=== PATIENT | female | born 1975 | race Caucasian/White ===

== ENCOUNTER → 2023-06-21 01:55 | Outpatient (CLI) | payer OTHER, SELFPAY | PROVIDERS: Referring Provider Family Medicine; Visit Provider Family Medicine | DX: Z23 Encounter for immunization (principal) | CPT/HCPCS: 90471; 90686 ==

== ENCOUNTER → 2024-05-13 07:28 | Outpatient (CLI) | payer OTHER, SELFPAY ==
--- NOTE | 2024-05-13 07:29 | DI.US.S_ITS ---
PROCEDURE: US PELVIC COMPLETE INDICATIONS: irregular bleeding TECHNIQUE: Real-time scanning was performed of the pelvic organs, with image documentation. Additional endovaginal scanning was necessary due to incomplete visualization of the adnexal and endometrial structures by transabdominal scanning. COMPARISON: None. FINDINGS: Uterus: Uterus is anteverted and normal in size at 11.9 x 4.5 x 5.4 cm. The myometrium is homogeneous. The endometrium measures 10.7 mm combined thickness. Ovaries: The right ovary measures 2.5 x 2.8 x 2.4 cm, with a calculated ovarian volume of 9 cc. The left ovary measures 1.9 x 3.9 x 2.6 cm, with a calculated ovarian volume of 10 cc. The ovaries have a normal sonographic appearance. Less than 12 follicles can be seen in each ovary. No adnexal masses are seen. Other: No pathologic free abdominal or pelvic fluid. IMPRESSION: Normal pelvic ultrasound. We strive to produce accurate, complete, and clear reports of imaging services. To assist us in improving patient care, this report was composed using standard report templates and voice recognition software. Therefore, it may contain abnormal punctuation, insertions and/or omissions. Occasional wrong-word or sound-alike substitutions may occur. Though we review the report and make efforts to correct it, we do recommend that the report be read carefully in proper context to recognize any text inaccuracies. Dictated by: Angelo Medina M.D. on 05/13/2024 at 8:51 Approved by: Angelo Medina M.D. on 05/13/2024 at 8:52
== END ==
PROVIDERS: PCP Family Medicine; Referring Provider Obstetrics & Gynecology; Visit Provider Obstetrics & Gynecology
DX: N92.6 Irregular menstruation, unspecified (principal)
CPT/HCPCS: 76856

== ENCOUNTER → 2024-05-31 17:23 | Outpatient (CLI) | payer OTHER, SELFPAY ==
[2024-05-31 18:35] LABS: Follicle Stimulating Hormone 9.04 mIU/mL; Luteinizing Hormone 4.94 mIU/mL
[2024-05-31 18:50] LABS: Estradiol, Total 47.1 pg/mL
== END ==
PROVIDERS: PCP Family Medicine; Referring Provider Obstetrics & Gynecology; Visit Provider Obstetrics & Gynecology
DX: N95.1 Menopausal and female climacteric states (principal); N93.9 Abnormal uterine and vaginal bleeding, unspecified; N92.6 Irregular menstruation, unspecified
CPT/HCPCS: 36415; 82670; 83001; 83002

== ENCOUNTER 2024-06-20 13:11 | Day surgery (SDC) | payer OTHER, SELFPAY ==
[2024-06-18 08:48] VITALS: BMI 34.3
[2024-06-20] VITALS (13 sets, daily range): BP systolic 83–103; BP diastolic 35–70; PULSE 16–98; RESP 12–92; TEMP 36.5–36.9; O2SAT 2–98; BMI 34.3
--- NOTE | 2024-06-20 | PATH_ITS ---
[facility] Accession Number: [id number] No. of containers..03 Tissue . 01 Material submitted: . PART A: endocervix - ENDOCERVICAL CURETTINGS PART B: endometrium - ENDOMETRIAL CURETTINGS PART C: cervix - CERVICAL LESION . 01 Diagnosis: A. ENDOCERVICAL CURETTINGS: Fragments of endocervix/lower uterine segment and detached strips of glandular epithelium; negative for significant atypia. . B. ENDOMETRIAL CURETTINGS: Portions of secretory endometrium; negative for endometrioid intraepithelial neoplasia or malignancy. Some endometrial fragments demonstrate prominent vessels, suggestive of polyp, if clinical and imaging studies are concordant. Fragments of endocervix/lower uterine segment; negative for significant atypia. . C. CERVICAL LESION: Polypoid fragment of cervical tissue with prominent Nabothian gland cysts. Squamous mucosa with patchy reactive changes; negative for dysplasia or malignancy. Portions of fibroglandular tissue, suggestive of endometrial origin; negative for significant atypia. [facility] 06/26/2024 1216 Local . 01 Electronically signed: . Lexie Ceron MD, Pathologist NPI- [id number] . 01 Gross description: . A. Received in formalin, labeled with two patient identifiers and designated endocervical curettings, and consists of a 2.0 x 2.0 x 0.4 cm aggregate of blood-tinged mucus and rico soft tissue, which is filtered and entirely submitted in cassette A1. B. Received in formalin, labeled with two patient identifiers and designated endometrial curettings, and consists of a 2.4 x 2.1 x 0.6 cm aggregate of clotted blood, mucus, and rico soft tissue which is filtered and entirely submitted in cassette B1. C. Received in formalin, labeled with two patient identifiers and designated cervical lesion, and consists of a 1.4 x 1.0 x 0.8 cm, rico-white, nodular and mucoid cervical tissue, which is inked at the cautery margin, serially sectioned, and entirely submitted in cassette C1. Also received in the same container is a 2.0 x 1.0 x 0.4 cm aggregate of mucus and clotted blood which is filtered and entirely submitted in cassette C2. ([id number]) /[facility] 06/22/2024 1310 Local . 01 Pathologist provided ICD-10: N93.9, N92.4 . 01 CPT . 829190, 988309, 450433 Specimen Comment: A courtesy copy of this report has been sent to [phone] Performed at: [address] [address], [place], [place] [id number] MD Lambert Sparks MD Phone: [phone]
[2024-06-20] MEDS: LACTATED RINGERS 1,000 ML 42 ML IV ×2 (13:53→18:07)
[2024-06-20] MEDS: ACETAMINOPHEN 325 MG TABLET 975 MG PO (14:11)
[2024-06-20] MEDS: SCOPOLAMINE 1 PATCH TOP (14:13)
--- NOTE | 2024-06-20 17:19 | SUR.OPER ---
Lithotomy on padded OR bed, head on pillow, arms secured on padded arm boards at <90 degrees abduction. Legs secured in padded yellow fins stirrups.
--- NOTE | 2024-06-20 17:21 | P.OP_ITS ---
Operative Date/Time/Diagnoses Date of procedure: 06/20/24 Time of procedure: 16:30 Pre-op diagnosis: Perimenopausal menometrorrhagia Post-op diagnosis: other (DONNA, cervical lesion) Procedure & Clinicians Procedure: Procedures Operation Date: 06/20/24 14:45 Actual Procedure Side Surgeon p Hysteroscopy w/ Dilation & Curettage of the uterus and Novasure Endometrial Ablation s Cervical biopsy w/ electrosurgical loop Alfa Ledesma MD Indications: Zoey returns today to review lab work as well as the endometrial biopsy performed last month. That biopsy showed normal late proliferative/early secretory endometrium without atypia, hyperplasia, or neoplasia. Some findings of the biopsy were suggestive of the presence endometrial polyps but those findings were not diagnostic. Her lab work showed normal estradiol level as well as normal LH and FSH levels consistent with premenopausal/perimenopausal status. Since her visit for endometrial biopsy, she has had 2 episodes of menstrual accidents while at work and would like to move forward as soon as possible with treatment. She is admitted now for hysteroscopy with possible biopsies, dilation and curettage of the uterus, and NovaSure endometrial ablation. Surgeon: Alfa Ledesma Anesthesia Type: General Operative Notes Findings: The uterus is mid to anteverted and sounds to a depth of 9 cm. The endometrial cavity itself is unremarkable with no focal abnormalities but rather a diffusely lush endometrium. The cervix demonstrates a hyperemic 1 point 4 cm round lesion at the edge of the ectocervical canal at 3:00. Although the patient's Paps have always been normal and this appears to be a benign lesion, it has conceivably a source of patient's bleeding and therefore removal was felt to be warranted. Closure Type: not applicable Specimen(s): endometrial curettings and other (Endocervical curettings) Estimated blood loss (mL): 5 Blood products transfused: none Procedure in detail: With the patient under general LMA in the modified dorsal lithotomy position, the perineum, vagina, and lower abdomen were prepped and draped in the usual fashion for hysteroscopy with endometrial ablation. A pre-surgical safety time- out was then taken in accordance with [facility] OR protocols. A bivalve speculum was inserted in the vagina and the cervix visualized. The anterior lip of the cervix was grasped with a single-tooth tenaculum and the endocervical canal was then dilated to 6 mm diameter. Hysteroscope was placed through the endocervical canal into the endometrial cavity and the cavity was visualized. There were no localized abnormalities within the endometrial cavity and the endometrium itself was as described above the. Both tubal ostia were visualized. The hysteroscope was then withdrawn and a fractional dilation and curettage was accomplished with separate pathologic specimen submitted for the endometrial and endocervical curettings. The uterine cavity was then sounded with the NovaSure device and found to be 6.5+ cm in depth. The NovaSure device was then inserted through the endocervical canal into the endometrial cavity and the width of the cavity determined to be 3.4 cm. Cavity integrity test demonstrated the cavity to be intact and ablation was initiated. Ablation time was 65 seconds with power utilized 122 w. The NovaSure device was then removed from the endometrial cavity and hysteroscopy demonstrated excellent ablation effect. The cavity was documented photographically both before and after endometrial ablation. The cervical lesion seen at 3:00 a.m. at the ectocervical margin was then removed using a 1.5 x 1.0 loop electrode and 60 w of cutting power. The specimen was submitted as a separate specimen labeled cervical lesion and the area of removal was rendered hemostatic easily with using ball cautery at 60 w of coagulation power. Once hemostasis was assured, the tenaculum was then removed from the anterior lip of the cervix and no bleeding was encountered. The speculum was then removed from the vagina and the patient awakened from anesthesia. She was then transferred to the PACU for a period of observation and recovery having tolerated the procedure well. Complications: none Post-operative Condition: stable Disposition: PACU Plan for aftercare: Routine post-op care with follow-up planned for 2 weeks postop.
[2024-06-20] MEDS: hydrOXYzine 50 MG/ML INJ 25 MG IM (17:34)
[2024-06-20] MEDS: ONDANSETRON 4 MG/2 ML INJ IV (17:34)
[2024-06-20] MEDS: HYDROMORPHONE 1 MG INJ IV (17:35)
--- NOTE | 2024-06-20 18:01 | SUR.PHASEI ---
Oxycodone offered and patient declined. Wasted one 5 mg tablet of oxycodone with Naida Stein RN, as witness.
--- NOTE | 2024-06-20 18:52 | SUR.PHASEII ---
Discharged patient home with all belongings and paperwork. Instructions reviewed with patient and . To vehicle with PACU nurse via wheelchair.
== END 2024-06-20 18:53 | disposition home or self-care (01) ==
PROVIDERS: PCP Family Medicine; Referring Provider Obstetrics & Gynecology; Visit Provider Obstetrics & Gynecology
PROC: 0U5B8ZZ Destruction of Endometrium, Via Natural or Artificial Opening Endoscopic (ICD-10-PCS; CPT 58563; principal; 2024-06-20 14:45)
DX: N92.4 Excessive bleeding in the premenopausal period (principal); N88.8 Other specified noninflammatory disorders of cervix uteri; N84.1 Polyp of cervix uteri
CPT/HCPCS: 58563; 57522; J1100; J1171; J1885; J2405; J2704; J3010; J3410

== ENCOUNTER → 2024-07-15 12:05 | Outpatient (CLI) | payer OTHER, SELFPAY | PROVIDERS: PCP Family Medicine; Referring Provider Internal Medicine; Visit Provider Internal Medicine | DX: Z23 Encounter for immunization (principal) | CPT/HCPCS: 90471; 90656 ==

== ENCOUNTER 2025-03-07 10:18 | Day surgery (SDC) | payer OTHER, SELFPAY ==
[2025-03-07] VITALS (20 sets, daily range): BP systolic 88–111; BP diastolic 50–64; PULSE 67–91; RESP 12–35; TEMP 36.2–36.3; O2SAT 85–99; BMI 38.4
--- NOTE | 2025-03-07 | PATH_ITS ---
[facility] Accession Number: [id number] No. of containers..01 Tissue . 01 Material submitted: . uterus - UTERUS, CERVIX AND BILATERAL FALLOPIAN TUBES . 01 Diagnosis: UTERUS, CERVIX AND BILATERAL FALLOPIAN TUBES (WEIGHT 101 GRAMS): Cervix with no significant abnormality. Endocervix with no significant abnormality. Post endometrial ablation per clinical; no well preserved endometrial tissue for histologic evaluation. Myometrium with a small focus of adenomyosis. Uterine serosa with benign peritoneal inclusion cysts. Left fallopian tube, complete cross-sections, with no significant abnormality. Right fallopian tube, complete cross-section, with no significant abnormality. Both fallopian tubes with benign paratubal cysts (up to 15 mm in greatest dimension) and with features consistent with previous tubal ligation at gross examination. [facility] 03/14/2025 1455 Local . 01 Electronically signed: . Lexie Ceron MD, Pathologist NPI- [id number] . 01 Gross description: . Received in formalin with two identifiers and uterus and cervix and bilateral fallopian tubes, is an intact uterus (101 grams, 9.7 cm superior to inferior, 5.4 cm medial to lateral, 4.5 cm anterior to posterior) with attached cervix (3.2 x 2.8 cm), with left fallopian tube (9.6 x 0.8 cm), and right fallopian tube (10.1 x 0.7 cm), with no additional adnexa. . The ectocervix is pink-rico and roughened with a slit-like os 0.9 cm in diameter. The anterior paracervical margin is inked blue. The posterior paracervical margin is inked black. The serosa is rico to violaceous and roughened with a small cystic structure 0.5 x 0.4 x 0.3 cm. The endocervical canal has rico herringbone mucosa and measures 3.7 cm in length. The endometrial cavity is 2.6 cm from cornu to cornu, and 5.0 cm in length with pink-rico velvety endometrium that averages 0.1 cm thick. A hemorrhagic cavity extends up to 1.0 cm. The endometrium has mckinney-rico to yellow dicoloration. The myometrium is rico and trabecular measuring up to 2.5 cm in maximum thickness with no lesions identified. . Both tubes have violaceous, smooth serosa with cystic structures up to 1.5 cm in greatest dimension containing clear serous fluid. Both tubes have a healed metal clip consistent with previous tubal ligation. The lumen proximal to the clip are diffusely dilated while the remaining lumen are stellate and unremarkable. . Quality Process Engineer sections are submitted as follows: A1: Anterior cervix. A2: Posterior cervix. A3: Anterior full thickness section. A4: Posterior full thickness section. A5: Hemorrhagic cavity. A6: Left fallopian tube. A7: Right fallopian tube. A8: Serosal cyst. ([id number]) /[facility] 03/08/2025 2206 Local . 01 Pathologist provided ICD-10: N99.85 . 01 CPT . 209345 Specimen Comment: A courtesy copy of this report has been sent to [phone] Performed at: [address] [id number] MD Lambert Sparks MD Phone: [phone]
[2025-03-07] MEDS: SCOPOLAMINE 1 PATCH TOP (11:04)
[2025-03-07] MEDS: FAMOTIDINE 20 MG/2 ML VIAL IV (11:05)
--- NOTE | 2025-03-07 12:24 | PM.GYNHP.1 ---
History of Present Illness History of Present Illness Reason for admission: vaginal bleeding and other (Post endometrial ablation syndrome) Narrative: Nivia Kessler is a 50 year old with a long history of perimenopausal menometrorrhagia who underwent endometrial ablation several months ago which provided temporary improvement in her symptoms but since then has begun having even worse pain with her bleeding which is almost continuous now. After consideration of all options, the patient desires to move forward with robotic assisted total laparoscopic hysterectomy with bilateral salpingectomy and she presents today for her scheduled surgery. [facility] Medical History (Updated 03/04/25 @ 14:06 by Alina Rojas RN) Anesthesia complication Diabetes Anxiety and depression Surgical History (Updated 03/04/25 @ 15:05 by Alina Rojas RN) Hx of cholecystectomy History of Hx of breast augmentation Hx of dilation and curettage (06/20/24) History of endometrial ablation History of female sterilization Social History household members: spouse Smoking Status: Former smoker alcohol intake: current Meds Home Medications and Allergies Home Medications ?Medication ?Instructions ?Recorded ?Confirmed ?Type alprazolam 1 mg tablet 1 mg PO DAILY 10/10/23 03/07/25 History amitriptyline 10 mg tablet 20 mg PO DAILY 10/10/23 03/07/25 History cyclobenzaprine 10 mg tablet 10 mg PO BEDTIME 10/10/23 03/07/25 History propranolol 20 mg tablet 60 mg PO DAILY 10/10/23 03/07/25 History albuterol sulfate 90 mcg/actuation 90 mcg inhalation Q6HR PRN 06/19/24 03/07/25 History aerosol inhaler Shortness Of Breath semaglutide 2 mg/dose (8 mg/3 mL) 2 mg SUBCUT WEEKLY 06/19/24 03/07/25 History subcutaneous pen injector (Ozempic) ondansetron 8 mg disintegrating 8 mg PO Q8H PRN nausea and 06/20/24 02/26/25 Rx tablet vomiting #10 tabs naproxen 500 mg tablet 500 mg PO BID PRN pain #30 tabs 02/18/25 03/07/25 Rx clonazepam 0.5 mg tablet PO 03/07/25 History dulaglutide 3 mg/0.5 mL 3 mg SUBCUT 03/07/25 History subcutaneous pen injector (Trulicity) omeprazole 40 mg capsule,delayed 40 mg PO QAM 03/07/25 03/07/25 History release Allergies Allergy/AdvReac Type Severity Reaction Status Date / Time Sulfa (Sulfonamide Allergy Intermediate Verified 03/07/25 10:48 Antibiotics) Penicillins Allergy Mild Verified 03/07/25 10:48 Review of Systems Review of Systems Narrative: Problem-specific ROS positives included in HPI Exam Vital Signs (past 8 hours): - 03/07/25 10:53 Temperature 97.2 F L Pulse Rate 80 Respiratory Rate 16 Blood Pressure 97/63 Pulse Oximetry 98 Oxygen Delivery Method Room Air Oxygen Delivery Method Room Air Const General: cooperative and comfortable Nutritional Appearance: average body habitus Orientation: alert and oriented x3 HENMT Head: normal to inspection, atraumatic and abrasion Ears: hearing grossly normal bilaterally Face and sinus: face symmetric Eyes General: appearance normal, both eyes and all related structures Conjunctivae: conjunctivae normal Sclera: sclerae normal EOM: EOM intact bilaterally Neck Neck: normal visual inspection Resp Effort & Inspection: normal respiratory effort and able to speak in complete sentences Auscultation: clear to auscultation bilaterally Cardio Rate: regular rate Rhythm: regular rhythm Heart Sounds: S1 normal, S2 normal and no murmurs GI Inspection: normal to inspection Palpation: soft and no hepatosplenomegaly External Female Exam: other (No significant bleeding noted) Extrem General: no calf tenderness Psych Appearance: grossly normal Mental Status: mental status grossly normal Speech and Movement: speech and movement normal Mood: congruent mood Affect: normal affect Attitude: cooperative Thought Process: normal Thought Content: normal Judgment: judgment good Objective Labs Labs: Laboratory Results - last 24 hr 03/07/25 10:58 POC Whole Bld Glucose 125 H Assessment & Plan Assessment and plan (1) Severe dysmenorrhea: Status: Acute (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 With full understanding of the above, a written consent was executed, signed, and witnessed. Time-Based Coding :: [TOTAL MINUTES] spent with patient and on the chart (including review of chart, obtaining history, exam, reviewing outside data, placing orders, documenting exam and treatment plan, and counseling patient) on [DATE].
--- NOTE | 2025-03-07 12:27 | PM.PREOP ---
Pre-operative Note COVID-19 COVID-19 status: Not tested Interval Note History & Physical reviewed/Exam performed by Physician: Yes Changes to H&P: No
[2025-03-07] MEDS: CEFAZOLIN 2 GM/100 ML PREMIX 100 ML IV (12:40)
--- NOTE | 2025-03-07 13:26 | SUR.OPER ---
Lithotomy on padded OR bed. Flushing Pad Positioner under torso. Head on pillow, arms padded and tucked at sides. Legs secured in padded yellow fins stirrups. Face protector in place, upper body torso straps secured. All pressure points padded and protected. Final position approved by
[2025-03-07] MEDS: BUPIVACAINE 0.25% (PF) VIAL 30 ML INJ (13:51)
--- NOTE | 2025-03-07 16:37 | P.OP_ITS ---
Operative Date/Time/Diagnoses Date of procedure: 03/07/25 Time of procedure: 13:20 Pre-op diagnosis: Post endometrial ablation syndrome Severe dysmenorrhea Abnormal uterine bleeding Post-op diagnosis: same Procedure & Clinicians Procedure: Procedures Operation Date: 03/07/25 12:00 Actual Procedure Side Surgeon p Robotic Laparoscopic Total Hysterectomy with bilateral salpingectomy Alfa Ledesma MD Indications: Nivia Kessler is a 50 year old with a long history of perimenopausal menometrorrhagia who underwent endometrial ablation several months ago which provided temporary improvement in her symptoms but since then has begun having even worse pain with her bleeding which is almost continuous now. After consideration of all options, the patient desires to move forward with robotic assisted total laparoscopic hysterectomy with bilateral salpingectomy and she presents today for her scheduled surgery. Surgeon: Alfa Ledesma Ruby On Rails Developer: Sanaz Martinez Anesthesia Type: General Operative Notes Findings: The uterus is normal in size and shape. The anterior and posterior cul-de-sac demonstrate no evidence of endometriosis but there is scarring from prior delivery in the anterior cul-de-sac. Both fallopian tubes demonstrate changes prior application of Hulka clips with proximal hydrosalpinges on both sides. There were no other abnormalities noted in the abdomen or pelvis via laparoscopic inspection Closure Type: primary Specimen(s): left tube, right tube and uterus Applied: catheter Estimated blood loss (mL): 125 Blood products transfused: none Procedure in detail: With the patient under satisfactory general anesthesia in the modified dorsal lithotomy position, the perineum, vagina, and abdomen were prepped and draped in the usual manner for total laparoscopic hysterectomy with robotic assist.? A pre-surgical safety time-out was then taken in accordance with [facility] OR protocols.? A bivalve speculum was then placed in the vagina and the cervix visualized.? The anterior lip of the cervix was then grasped with single- tooth tenaculum and the endocervical canal dilated to 6 mm with Hegar dilators.? A stitch was then placed in the anterior lip of the cervix using 1. PDS and the suture was threaded through the colpotomy cup of the VCare which was then introduced into the endometrial cavity without difficulty.? Once the VCare was placed, preparations for laparoscopy were initiated.? An 8 mm transverse incision was then made above the umbilicus after infiltration with 0.5% Marcaine with epinephrine.? A varies needle was then used to insufflate the abdominal cavity and once properly insufflated, an 8 mm trocar and sleeve were introduced through the incision into the abdominal cavity.? Correct placement of the sleeve in the abdominal cavity was confirmed with a 5 mm scope.? Two additional 8 mm trocars and sleeves were then placed laterally on the patient's right side using a similar technique, and 1 additional 8 mm trocar was then placed laterally on the patient's left side. ?A 5 mm port was then placed superior to the umbilical port to the left of the midline as an nurse practitioner physician assistant's port. The patient was then placed in 27 degree Trendelenburg position. ?The robot was brought in and positioned on the patient's left side. ?The robotic scope was then placed through the 8 mm #2 Port and aimed at the uterus as the focal point of surgery.? A vessel sealer, fenestrated bipolar grasper, and laparoscopic scissors were then placed in the 3 remaining ports.? The pelvis was carefully inspected with the findings as noted above.? Attention was then turned to the left adnexa with the distal tube grasped with the fenestrated bipolar grasper. ?The vessel sealer was used to coagulate and divide the fimbria ovarica all the way over to the left cornua.? The vessel sealer was then used to coagulate and divide 1st the utero-ovarian ligament on the left followed by the round ligament on the left.? The dissection was carried down to the bladder reflection.? The peritoneum at the level of the bladder reflection was then taken down with the vessel sealer across the midline and the bladder was easily advanced.? The ascending uterine vessels were then taken on the left side with the fenestrated bipolar grasper and divided with the scissors.? There was no significant bleeding noted.? Attention was then turned to the right adnexa with the distal tube grasped with the fenestrated bipolar grasper.? The fimbria ovarica was then coagulated and divided with the vessel sealer and then dissection was carried across the mesosalpinx to the cornua on the right.? The utero-ovarian ligament was then coagulated and divided and the dissection carried down across the round ligament on the right down to the level of the vessels at the bladder reflection.? The bladder flap was then completed using the vessel sealer and the bladder further advanced beyond the level of the colpotomy cup.? The fenestrated bipolar grasping forceps were used to coagulate the ascending uterine vessels on the right side and they were transected then with the monopolar scissors.? Anterior colpotomy was then performed along the line of the colpotomy cup using the monopolar cutting current in the scissors in a similar posterior incision was made along the line of the colpotomy cup.? Once the ascending uterine vessels were isolated, each side was coagulated and divided with the fenestrated bipolar forceps and the monopolar scissors.? Once the uterus was completely freed, it was removed through the vaginal canal along with the VCare.? A moistened towel was then introduced into the vaginal canal as an obturator and the vaginal cuff was closed in 2 layers using 0 strata fix suture.? The pelvis was thoroughly irrigated and inspected for any other abnormality or bleeding.? There were no abnormalities or bleeding noted and the pneumoperitoneum was vented.? The laparoscopy port sleeves were then removed and each of the incisions were closed with 4-0 Monocryl using inverted interrupted stitches.? The port incisions were then covered with an appropriate dressing and the patient was awakened from anesthesia.? She was then transferred to the PACU for a period of observation and recovery after having tolerated the procedure well. Complications: none Post-operative Condition: stable Disposition: PACU Plan for aftercare: Routine PACU care with transfer to acute care for a period of recovery prior to discharge.
[2025-03-07] MEDS: LACTATED RINGERS 1,000 ML 42 ML IV ×3 (17:06→18:17)
--- NOTE | 2025-03-07 17:18 | SUR.PHASEI ---
Pt very somnolent, rouses briefly; BG 140 @ 1700, BP near baseline, difficulty maintaining O2 sats. Close monitoring in progress
--- NOTE | 2025-03-07 17:37 | SUR.PHASEI ---
Nasal trumpet placed to assist airway @ 1655, d/c'd at 1735; pt currently bleeding from right nare. Pressure held on bridge of nose.
[2025-03-07] MEDS: KETOROLAC 30 MG/ML VIAL IV (21:01)
[2025-03-07] MEDS: CYCLOBENZAPRINE 10 MG TABLET PO (21:01)
[2025-03-07] MEDS: ACETAMINOPHEN 325 MG TABLET 650 MG PO (21:01)
[2025-03-07] MEDS: DOCUSATE 100 MG CAPSULE 200 MG PO (21:02)
[2025-03-07] MEDS: LACTATED RINGERS 1,000 ML 100 ML IV (21:03)
[2025-03-08] VITALS: BP 101/60; PULSE 95; RESP 17; TEMP 36; O2SAT 92
[2025-03-08] MEDS: KETOROLAC 30 MG/ML VIAL IV ×2 (01:34→07:31)
[2025-03-08] MEDS: FAMOTIDINE 20 MG TABLET PO ×2 (01:34→09:42)
[2025-03-08] MEDS: ACETAMINOPHEN 325 MG TABLET 650 MG PO ×2 (01:34→07:31)
[2025-03-08] MEDS: LACTATED RINGERS 1,000 ML 100 ML IV (01:35)
[2025-03-08 04:00] VITALS: BP 105/57; PULSE 103; RESP 22; TEMP 36.3; O2SAT 92
[2025-03-08 05:05] LABS: Add Manual Diff / Slide Review NO; Hematocrit 37.5 % (36-46); Hemoglobin 12.6 g/dL (12.0-16.0); Lymphocytes Absolute Auto 1000 /uL (1100-4500); Mean Corpuscular HGB Conc 33.6 % (30-36); Mean Corpuscular Hemoglobin 29.1 PG (26-34); Mean Corpuscular Volume 86.8 fL (80-100); Platelet Count 288 X10^3/uL (150-400)
[2025-03-08 08:00] VITALS: BP 87/47; PULSE 104; RESP 24; TEMP 36.2; O2SAT 93
--- NOTE | 2025-03-08 08:43 | CM.DANOTE ---
Initial DCP Assessment Note Pt is a 50 yo female, resident of [place], now POD#1 from laparoscopic hysterectomy with bilateral salpingectomy by Dr Ledesma. PCP: Napoleon Mireles Payer: Delano Pillai Reviewed chart, patient lives independently with spouse, works for [employer]. Patient has arranged for return home with family to assist throughout her recovery. No barriers identified at this time to patient's safe discharge home w/family to assist; close outpatient f/u recommended. Social work team will plan to follow clinical course closely in case any DC needs or concerns arise. ALEX Nunes Discharge Planning/Care Management CM Discharge Assessment Start: 03/07/25 10:46 Freq: Status: Active Protocol: Document 03/08/25 08:38 SHILA (Rec: 03/08/25 08:43 SHILA [id number]) Discharge Planning Assessment Assigned Discharge ALEX Mcdaniel Industrial Training Specialist DPOA/Assigned Clayton Potter, spouse Designee Name Contact Information [phone] Advance Directives? No History Provided By Patient,Medical Record Prior Living House Arrangements Household Members spouse Type of Drives own vehicle transporation used prior to admit Independent with ADL Yes 's Is patient alert and Yes oriented? Comment Independent Discharge Plan Home Transportation Family Arrangement Referrals Initiated None needed
[2025-03-08] MEDS: ONDANSETRON 4 MG/2 ML INJ IV (09:41)
[2025-03-08] MEDS: DOCUSATE 100 MG CAPSULE 200 MG PO (09:41)
[2025-03-08 10:19] VITALS: O2SAT 91
--- NOTE | 2025-03-08 10:28 | P.DS_ITS ---
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 Full details of the procedure well summarized on my operative note of that date. Following the procedure, the patient has done well with prompt return of bowel and bladder function, she is ambulating independently, tolerating a regular diet, and her pain is well-controlled with oral pain medications. She will be discharged at this time in an afebrile normotensive condition to home after counseling regarding precautionary symptoms, limitations activity, medications, and plans for follow-up which will be in 2 weeks or as needed. Medications at discharge will include resumption of all preadmission medications as well as Zofran 8 mg ODT p.o. every 8 hours as needed for for nausea, hydromorphone 2 mg tabs 1 p.o. every 4-6 hours as needed for pain, dispensed 15 with no refills, and Cipro 500 mg p.o. b.i.d. x5 days for UTI prophylaxis following catheterization. Status at Discharge Cognitive/behavioral status at discharge: oriented Functional status at discharge: independent ambulation Overall status at discharge: patient is progressing back to baseline Time Spent with Patient Time spent: Less than 30 minutes Exam Vital Signs (past 8 hours): - 03/08/25 04:00 03/08/25 08:00 03/08/25 10:19 Temperature 97.3 F L 97.2 F L Pulse Rate 103 H 104 H Respiratory Rate 22 24 Blood Pressure 105/57 L 87/47 L Pulse Oximetry 92 93 91 Oxygen Delivery Method Nasal Cannula Oxygen Flow Rate 2 2 Oxygen Delivery Method Nasal Cannula Oxygen Flow Rate 2 Const General: cooperative and comfortable Nutritional Appearance: average body habitus Orientation: alert and oriented x3 HENMT Head: normal to inspection, atraumatic and abrasion Ears: hearing grossly normal bilaterally Face and sinus: face symmetric Eyes General: appearance normal, both eyes and all related structures Conjunctivae: conjunctivae normal Sclera: sclerae normal EOM: EOM intact bilaterally Neck Neck: normal visual inspection Resp Effort & Inspection: normal respiratory effort and able to speak in complete sentences Auscultation: clear to auscultation bilaterally Cardio Rate: regular rate Rhythm: regular rhythm Heart Sounds: S1 normal, S2 normal and no murmurs GI Inspection: normal to inspection and incision (Surgical dressings clean and dry) Palpation: soft, no hepatosplenomegaly and tender (Mild, diffuse postsurgical tenderness) External Female Exam: other (No significant bleeding noted) Extrem General: no calf tenderness Psych Appearance: grossly normal Mental Status: mental status grossly normal Speech and Movement: speech and movement normal Mood: congruent mood Affect: normal affect Attitude: cooperative Thought Process: normal Thought Content: normal Judgment: judgment good Objective Labs 03/08/25 04:30 Labs: Laboratory Results - last 24 hr 03/07/25 03/07/25 03/08/25 10:58 16:57 04:30 WBC 16.6 H RBC 4.32 Hgb 12.6 Hct 37.5 MCV 86.8 MCH 29.1 MCHC 33.6 RDW 13.8 Plt Count 288 Neut % (Auto) 91.6 H Lymph % (Auto) 6.0 L Gregg % (Auto) 2.3 L Eos % (Auto) 0.0 L Baso % (Auto) 0.1 Neut # (Auto) 50270 H Lymph # (Auto) 1000 L Gregg # (Auto) 400 Eos # (Auto) 0 Baso # (Auto) 0 POC Whole Bld Glucose 125 H 140 H PFSH Medical History (Updated 03/04/25 @ 14:06 by Alina Rojas RN) Anesthesia complication Diabetes Anxiety and depression Surgical History (Updated 03/04/25 @ 15:05 by Alina Rojas RN) Hx of cholecystectomy History of Hx of breast augmentation Hx of dilation and curettage (06/20/24) History of endometrial ablation History of female sterilization Social History household members: spouse Smoking Status: Former smoker alcohol intake: current Discharge Assessment & Plan Assessment and Plan Assessment: Post endometrial ablation syndrome Status post robotically assisted total laparoscopic hysterectomy with bilateral salpingectomy Plan of Treatment: Routine postoperative care with follow-up planned for 2 weeks postop or as needed. Discharge Plan Discharge Plan Patient Disposition: Home Provider Discharge Comment: Please review the written instructions you received when you were discharged from the hospital. Your follow-up appointment is scheduled for 2 weeks after surgery and I look forward to seeing you then. If however in the meanwhile you have any issues, concerns, or questions, please contact me either through the office phone [phone], or via the patient portal. Discharge orders & Medications Discharge Orders: Discharge (Order); Ordered 03/08/25 Ordered By: Alfa Ledesma Prescriptions: New hydromorphone [Dilaudid] 2 mg tablet 2 mg PO Q4-6H PRN (Reason: pain) Qty: 15 0RF ciprofloxacin HCl [Cipro] 500 mg tablet 500 mg PO BID 5 Days Qty: 10 0RF ondansetron 8 mg tablet,disintegrating 8 mg PO Q8H PRN (Reason: nausea and vomiting) Qty: 10 0RF Continued alprazolam 1 mg tablet 1 mg PO DAILY amitriptyline 10 mg tablet 20 mg PO DAILY propranolol 20 mg tablet 60 mg PO DAILY cyclobenzaprine 10 mg tablet 10 mg PO BEDTIME ondansetron 8 mg tablet,disintegrating 8 mg PO Q8H PRN (Reason: nausea and vomiting) Qty: 10 0RF naproxen 500 mg tablet 500 mg PO BID PRN (Reason: pain) Qty: 30 4RF Ozempic 2 mg/dose (8 mg/3 mL) pen injector 2 mg SUBCUT WEEKLY Patient Comments: [NO ORIGINAL SIG] albuterol sulfate 90 mcg/actuation HFA aerosol inhaler 90 mcg inhalation Q6HR PRN (Reason: Shortness Of Breath) clonazepam 0.5 mg tablet PO omeprazole 40 mg capsule,delayed release(DR/EC) 40 mg PO QAM Trulicity 3 mg/0.5 mL pen injector 3 mg SUBCUT Follow up/Referrals: Napoleon Mireles DO [Primary Care Provider, Family Practice] Alfa Ledesma MD [Physician, BLACK TOP MACHINE OPERATOR] Diet/Activity/Treatments Diet: Diet as Tolerated Activity: As tolerated Other treatments: [id number] Tylenol and/or ibuprofen may be used for additional pain relief. Icob-ruc-tlufduk stool softeners and/or MiraLax may be used as needed for constipation. Skin/Wound/Dressing Care Report to your healthcare provider any signs of infection, such as:: chills, fever, increased pain, unusual drainage and unusual redness Dressing: Dressings should be removed on the morning of 03/09/2025 Visit Report/Discharge Packet Instructions: DI for Hysterectomy, DI for Laparoscopy, DI for Prescription Opioid Use Stand Alone Forms: Surgery Discharge Print Language: Jamaican Discharge Data Primary Care Provider: Napoleon Mireles Attending Provider: Alfa Ledesma VTE Deep Vein Thrombosis/Pulmonary Embolism Present on Admission: No IH PROFEE Charge Codes Discharge inpatient/observation: [id number]
--- NOTE | 2025-03-08 12:33 | PC.NURSE ---
Pt d/c'd to care of after instructions were discussed. IV d/c'd intact. Rodrigez out intact and pt voided. escorted to car via w/c by Lucy URBAN.
== END 2025-03-08 11:58 | disposition home or self-care (01) ==
LOC: OR 10:19 → AC 10:20
PROVIDERS: PCP Family Medicine; Referring Provider Obstetrics & Gynecology; Visit Provider Obstetrics & Gynecology
PROC: 0UT94ZZ Resection of Uterus, Percutaneous Endoscopic Approach (ICD-10-PCS; CPT 58571; principal; 2025-03-07 12:00)
DX: N99.85 Post endometrial ablation syndrome (principal); N94.6 Dysmenorrhea, unspecified; Z87.891 Personal history of nicotine dependence; N80.03 Adenomyosis of the uterus; N83.8 Other noninflammatory disorders of ovary, fallopian tube and broad ligament
CPT/HCPCS: 58571; S2900; 36415; 81025; 82962; 85025; 94760; A9270; J0689; J1100; J1171; J1885; J2250; J2405; J2704; J3010; J3475; J3490